=== PATIENT | female | born 1980 | race Caucasian/White ===

== ENCOUNTER 2017-09-11 08:32 | Emergency (ER) | payer BC ==
[2017-09-11 08:32] VITALS: BMI 31.8
[2017-09-11 08:47] VITALS: O2SAT 98
[2017-09-11] MEDS ORDERED: Naproxen 500 MG TAB PO STA (09:00)
[2017-09-11] MEDS ORDERED: Naproxen 500 MG TAB PO ONE (09:06)
--- NOTE | 2017-09-11 09:27 | ED PDOC ---
Lower Extremity Pain/Injury Time Seen by Provider: 09/11/17 08:39 Chief Complaint (Nursing): Abdominal Pain Chief Complaint (Provider): Hip pain History Per: Patient History/Exam Limitations: no limitations Onset/Duration Of Symptoms: Days (x1 week) Current Symptoms Are (Timing): Still Present Additional Complaint(s): Ashia Siddiqui is a 37 year old female, with no significant past medical history , who presents to the emergency department complaining of left sided hip pain onset for x1 week. Patient reports pain is constant at night and intermittent throughout the day and states the pain started radiating down the left leg. Patient recently had her menses and thought the pain was because of it, but pain hasn't subsided. She took Tylenol with some relief. Patient reports she has a history of intermittent left sided pain for which she was seen by a Childcare Worker and told she had elevated SONJA levels. She denies any trauma, paresthesias, weakness, fever, chills, nausea, vomiting, diarrhea, dysuria or hematuria. No further medical complaints. PMD: None provided Past Medical History Reviewed: Historical Data, Nursing Documentation, Vital Signs Vital Signs: Last Vital Signs Temp 98.0 F 09/11/17 08:37 Pulse 85 09/11/17 08:37 Resp 19 09/11/17 08:37 BP 103/58 L 09/11/17 08:37 Pulse Ox 98 09/11/17 08:41 - Medical History PMH: No Chronic Diseases Denies: Chronic Kidney Disease Other PMH: Polymyalgia rheumatica - Surgical History Other surgeries: tubal ligation - Family History Family History: States: Unknown Family Hx - Home Medications Home Medications: Ambulatory Orders Medication Instructions Recorded oxyCODONE/Acetaminophen [Percocet 5 - 325 mg PO Q4 PRN 07/29/15 5/325 mg Tab] Penicillin V Potassium 500 mg PO BID #20 tab 12/30/15 Cyclobenzaprine [Cyclobenzaprine 10 mg PO TID PRN #15 tab 09/11/17 HCl] Naproxen [Naprosyn] 500 mg PO BID PRN #15 tablet 09/11/17 - Allergies Allergies/Adverse Reactions: Allergies Allergy/AdvReac Type Severity Reaction Status Date / Time Penicillins Allergy Mild RASH Verified 09/11/17 09:14 Review of Systems ROS Statement: Except As Marked, All Systems Reviewed And Found Negative Constitutional: Negative for: Fever, Chills Gastrointestinal: Negative for: Nausea, Vomiting, Abdominal Pain, Diarrhea Genitourinary Female: Negative for: Dysuria, Hematuria Musculoskeletal: Positive for: Leg Pain (left), Other (left sided hip pain) Physical Exam - Reviewed Nursing Documentation Reviewed: Yes Vital Signs Reviewed: Yes - Physical Exam Appears: Positive for: Non-toxic, No Acute Distress Head Exam: Positive for: ATRAUMATIC, NORMOCEPHALIC Skin: Positive for: Normal Color, Warm, Dry Eye Exam: Positive for: Normal appearance Neck: Positive for: Painless ROM Cardiovascular/Chest: Positive for: Regular Rate, Rhythm. Negative for: Murmur Respiratory: Positive for: Normal Breath Sounds. Negative for: Respiratory Distress Gastrointestinal/Abdominal: Positive for: Normal Exam, Soft. Negative for: Tenderness Back: Positive for: Normal Inspection. Negative for: L CVA Tenderness, R CVA Tenderness, Vertebral Tenderness Extremity: Positive for: Normal ROM (lower extremities), Tenderness (Anterior hip bony tenderness. No erythema, edema or induration.). Negative for: Deformity, Swelling Neurologic/Psych: Positive for: Alert, Oriented. Negative for: Motor/Sensory Deficits - ECG O2 Sat by Pulse Oximetry: 98 (RA) Pulse Ox Interpretation: Normal Medical Decision Making Medical Decision Making: Initial Impression: hip pain Initial Plan: --Urine --Urine dipstick --Flexeril 10 mg PO --Naproxen 500 mg PO --Hip left [HIP MIN 4V W/ Pelvis LT] [RAD] --Reevaluation Scribe Attestation: Documented by Nigel Yañez, acting as a scribe for Nathaly Kent MD Provider Scribe Attestation: All medical record entries made by the Scribe were at my direction and personally dictated by me. I have reviewed the chart and agree that the record accurately reflects my personal performance of the history, physical exam, medical decision making, and the department course for this patient. I have also personally directed, reviewed, and agree with the discharge instructions and disposition. Disposition - Clinical Impression Clinical Impression: Hip pain - Disposition Disposition: Routine/Home Disposition Time: 10:50 Condition: IMPROVED Additional Instructions: FOLLOW-UP WITH PMD WITHIN 2 DAYS FOR REEVALUATION. Prescriptions: Cyclobenzaprine [Cyclobenzaprine HCl] 10 mg PO TID PRN #15 tab PRN Reason: Pain Naproxen [Naprosyn] 500 mg PO BID PRN #15 tablet PRN Reason: Pain, Moderate (4-7) Instructions: Hip Pain, Joint Pain Forms: [facility] (Bengali), [facility] ED School/Work Excuse
--- NOTE | 2017-09-11 10:13 | RAD ---
PROCEDURE: Left Hip X-ray Radiographs. HISTORY: Left anterior hip pain COMPARISON: None. FINDINGS: BONES: The pelvic ring is intact. There is no acute fracture or bone destruction. Bone alignment and mineralization are normal. JOINTS: Normal. SOFT TISSUES: Normal. OTHER FINDINGS: None. IMPRESSION: No acute fracture, dislocation or bone destruction.
[2017-09-11] MEDS ORDERED: Oxycodone/Acetaminophen 5/325 mg Tab PO STA (10:59)
[2017-09-11] MEDS ORDERED: Oxycodone/Acetaminophen 5/325 mg Tab ONE (11:11)
[2017-09-11 11:16] VITALS: BP 120/70; PULSE 72; RESP 20; TEMP 98.2
== END 2017-09-11 11:17 | disposition home or self-care (01) ==
LOC: H.ER 08:32
DX: M25.552 Pain in left hip (principal); M35.3 Polymyalgia rheumatica; Z88.0 Allergy status to penicillin